=== PATIENT | female | born 1995 | race Caucasian/White ===

== ENCOUNTER 2018-07-17 09:02 | Emergency (ER) | payer OTHER ==
[~2018-07-17] VITALS: Ht 175.3 cm; Wt 54.0 kg
[2018-07-17 09:16] VITALS: BP 113/65
--- NOTE | 2018-07-17 09:18 | NUR ---
PT. CAME INTO THE ED DUE TO CHEST PAIN X 4 DAYS. 03/13 INTERMITTENT CHEST PAIN THAT IS DESCRIBED BURNING AND STARTS ON L SIDE OF CHEST AND RADIATES TO R SIDE OF CHEST. DENIES N/V/D. DENIES SOB. LS: CLEAR. PT. STATES " I WAS WORKING OUT AND IT STARTED HURTING THEN I STARTED GETTING ANXIOUS THINKING IT WAS SOMETHING BAD AND IT JUST COMES AND GOES I DONT KNOW IF IT IS MY ANXIETY". RR EVEN AND UNLABORED. SKIN WARM AND DRY TO TOUCH.RR EVEN AND UNLABORED. MOTHER AT BEDSIDE AT THIS TIME.SAFETY PRECAUTIONS IMPLEMETNED. WILL CONTINUE TO MONITOR.
--- NOTE | 2018-07-17 09:26 | NUR ---
RADIOLOGY AT BEDSIDE AT THIS TIME
--- NOTE | 2018-07-17 09:36 | NUR ---
PT. UNABLE TO PROVIDE URINE SAMPLE AT THIS TIME. PROVIDED WITH WATER
[2018-07-17 09:56] VITALS: BP 120/64
--- NOTE | 2018-07-17 09:56 | NUR ---
Patient discharged with v/s stable. Written and verbal after care instructions given and explained. Patient alert, oriented and verbalized understanding of instructions. Ambulatory with steady gait. All questions addressed prior to discharge. ID band removed. Patient advised to follow up with PMD. Rx of MOTRIN 400MG given. Patient educated on indication of medication including possible reaction and side effects. Opportunity to ask questions provided and answered.
== END 2018-07-17 09:56 | disposition home or self-care (01) ==
LOC: MED 09:02
DX: R07.89 Other chest pain (principal); F41.9 Anxiety disorder, unspecified
CPT/HCPCS: 71045; 81002; 81025; 99283; Q0092

== ENCOUNTER 2021-10-27 11:53 | Emergency (ER) | payer OTHER ==
[~2021-10-27] VITALS: Ht 172.7 cm; Wt 70.5 kg
--- NOTE | 2021-10-27 12:07 | NUR ---
PT AMB TO ER BED 11
[2021-10-27 12:08] VITALS: BP 107/62
--- NOTE | 2021-10-27 12:16 | NUR ---
PT AMB TO ER BED 7
--- NOTE | 2021-10-27 12:47 | NUR ---
Dr. Lopez is evaluating pt at bedside
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
--- NOTE | 2021-10-27 13:06 | NUR ---
PT TAKEN TO CT VIA [facility]
--- NOTE | 2021-10-27 13:15 | NUR ---
Pt returned from CT by jacquelyn.
--- NOTE | 2021-10-27 13:50 | NUR ---
DR. TODD AT BEDSIDE [facility] PT
--- NOTE | 2021-10-27 14:13 | NUR ---
Patient discharged with v/s stable. Written and verbal after care instructions given about herniated disk and explained by RN. Patient verbalized understanding. Ambulatory with steady gait. All questions addressed prior to discharge. Advised to follow up with PMD.
[2021-10-27 14:17] VITALS: BP 101/55
--- NOTE | 2021-10-27 14:41 | NUR ---
The patient's care was reviewed and supervised by Caitlin Villalobos RN.
== END 2021-10-27 14:17 | disposition home or self-care (01) ==
LOC: MED 11:53
DX: M51.26 Other intervertebral disc displacement, lumbar region (principal); M54.50 Low back pain, unspecified; V89.2XXA Person injured in unspecified motor-vehicle accident, traffic, initial encounter; Y93.89 Activity, other specified; Y92.89 Other specified places as the place of occurrence of the external cause; Y99.8 Other external cause status
CPT/HCPCS: 71045; 72131; 72192; 81002; 81025; 99284

== ENCOUNTER 2022-10-03 15:49 | Emergency (ER) | payer OTHER ==
[~2022-10-03] VITALS: Ht 172.7 cm; Wt 68.5 kg
[2022-10-03 15:57] VITALS: BP 113/65
--- NOTE | 2022-10-03 16:45 | NUR ---
27 Y/O FEMALE BIB SELF C/O GENERALIZED NECK PAIN AND FRONTAL HAX2 DAYS, PT STATES THAT SHE FEELS "WARM", DENIES ANY RECENT TRAVELS, FEVERS, CHILLS, FULL ROM NOTED. DENIES ANY SHOULDER PAIN, VISION CHANGES NKA PMH: DENIES
--- NOTE | 2022-10-03 17:55 | NUR ---
PATIENT LEFT WITHOUT BEING SEEN BY KIERA RAZA. NO FURTHER CARE PROVIDED FOR PATIENT.
--- NOTE | 2022-10-03 17:55 | NUR ---
KIERA RAZA ATTEMPTED TO BRING PT BACK, NOT FOUND IN LOBBY/OUTSIDE
--- NOTE | 2022-10-03 18:15 | NUR ---
2ND ATTEMPT, NOT FOUND IN LOBBY/OUTSIDE
--- NOTE | 2022-10-03 18:32 | NUR ---
LAST ATTEMPT, NOT FOUND IN LOBBY/OUTSIDE
== END 2022-10-03 17:55 | disposition left against medical advice (07) ==
LOC: MED 15:49
DX: M54.2 Cervicalgia (principal); R51.9 Headache, unspecified; Z53.21 Procedure and treatment not carried out due to patient leaving prior to being seen by health care provider